=== PATIENT | female | born 1975 | race Caucasian/White ===

== ENCOUNTER 2016-11-01 23:51 | Emergency (ER) | payer OTHER ==
--- NOTE | ~2016-11-01 | EKG ---
PATIENT: DARIEN BRYSON UNIT #: [id number] Ventricular Rate: 73 BPM Atrial Rate: 73 BPM P-R Interval: 170 ms QRS Duration: 78 ms Q-T Interval: 404 ms QTC Calculation(Bezet): 445 ms P [place]: 28 degrees Calculated R [place]: 6 degrees Calculated T [place]: 21 degrees Diagnosis Line: Normal sinus rhythm Diagnosis Line: Normal ECG Diagnosis Line: No previous ECGs available Diagnosis Line: Confirmed by EDEL SANDERSON MD ([id number]) on Diagnosis Line: 11/03/2016 12:05:21 AM INTERPRETING MD: KIN NELSON
--- NOTE | ~2016-11-01 | EKG ---
PATIENT: DARIEN BRYSON UNIT #: [id number] Ventricular Rate: 91 BPM Atrial Rate: 91 BPM P-R Interval: 152 ms QRS Duration: 76 ms Q-T Interval: 360 ms QTC Calculation(Bezet): 442 ms P [place]: 64 degrees Calculated R [place]: 12 degrees Calculated T [place]: 30 degrees Diagnosis Line: Normal sinus rhythm Diagnosis Line: Normal ECG Diagnosis Line: No previous ECGs available Diagnosis Line: Confirmed by EDEL SANDERSON MD ([id number]) on Diagnosis Line: 11/03/2016 12:04:53 AM INTERPRETING MD: KIN NELSON
--- NOTE | ~2016-11-01 | CR63 ---
[facility] A Service of [facility] & [facility] RADIOLOGY TEXT RESULTS PATIENT: DARIEN BRYSON LOCATION: [facility] : [birth year] UNIT #: [id number] AGE: [address]: Chuckie Llamas MD SEX: F ORDER DR: [id number] [facility] [address] [place], [place] [address] [id number] MR#: [id number] Acc #: [id number] NAME: DARIEN BRYSON : 1975 SEX: F STUDY DATE/TIME: 11/01/2016 23:52 UNIT: [facility] ROOM: STUDY DESCRIPTION: CR Chest 2 View Attending Physician: Chuckie Llamas M.D. Ordering Physician: Chuckie Llamas M.D. Primary Care Physician: Som Kern M.D. MEDICAL IMAGING REPORT This report is preliminary unless electronic signature is present EXAM PA lateral chest 11/01/2016 HISTORY Chest pain and shortness of breath today. COMPARISON AP portable chest 02/06/2009. FINDINGS PA and lateral examination of the chest upright shows a good expansion of the parenchyma with a normal distribution of the pulmonary vascularity. There is no indication of congestion, effusion, infiltrate, tumor, or nodular density. The pleural reflections and diaphragmatic contours are normal. The cardiac silhouette and mediastinal anatomy is within normal limits. IMPRESSION Normal chest. Dictated by... Donna Hernández M.D. THIS IS AN ELECTRONICALLY VERIFIED REPORT Donna Hernández M.D. at 11/02/2016 9:57 PM SUMA/vlad TD: 11/02/2016 10:47 JOB #: [id number] MEDICAL IMAGING REPORT COPY
[~2016-11-01 23:51] MED LIST: ACETAMINOPHEN PO; AFRIN15 ML; ALBUTEROL17 GM INH; ATIVAN2 M1 PO; BACTRIM DS TABL1 TA1 PO; BACTRIM DS TABL1 TAB PO; BENTYL20 MG PO; CARVEDILOL6.25 MG PO; DARVOCET-N 1001 TA1; FLAGYL PO; FLONASE16 GM; HYDROCODONE/A1 UDTA2 PO; LEVAQUIN PO; LISINOPRIL5 MG PO; LORTAB 5/500 TA1 TA1 PO; LORTAB 7.5-5001 TAB PO; NORCO 5/325 TAB1 TAB PO; PHENERGAN25 MG PO; PREDNISONE PO; PREVACID30 MG/BLIS PO; RANITIDINE HCL300 M1 PO; RIFAMPIN300 MG PO; SYMBICORT INH; TUSSI PO; ZOFRAN ODT4 MG PO; ZYPREXA PO
[2016-11-02 00:12] LABS: POC - CKMB <1.0 ng/mL (0.0-7.9); POC - TROPONIN <0.05 ng/mL (<=0.05)
[2016-11-02 00:19] LABS: BASOPHIL# 0.1 X10e3 (0-0.3); BASOPHIL% 0.8 % (0-2.5); EOSINOPHIL# 0.4 X10e3 (0-0.7); EOSINOPHIL% 2.5 % (0.0-7.0); HEMATOCRIT 41.6 % (35.0-45.0); HEMOGLOBIN 13.8 gm/dL (12.0-16.0); LYMPHOCYTE# 3.5 X10e3 (1.0-3.5); LYMPHOCYTE% 19.7 % (17.0-45.0); MEAN CORPUSCULAR HEMOGLOBIN 30.8 PG (28-34); MEAN CORPUSCULAR HGB CONC 33.1 g/dL (30-36); MEAN PLATELET VOLUME 9.8 FL (6.5-11.5); MONOCYTE# 1.6 X10e3 (0-1.0); PLATELET COUNT 270 X10e3 (140-420); RED BLOOD COUNT 4.48 X10e (3.90-5.30); WHITE BLOOD COUNT 17.6 X10e3 (4.0-10.5)
[2016-11-02 00:20] LABS: DIFF IND YES
[2016-11-02 00:47] LABS: ALBUMIN SERUM 4.3 g/dL (3.5-5.0); ALKALINE PHOSPHATASE 67 U/L (32-92); ALT (SGPT) 12 U/L (10-40); AST (SGOT) 19 U/L (10-42); BILIRUBIN, DIRECT 0.1 mg/dL (0.0-0.2); BILIRUBIN,INDIRECT 0.6 mg/dL (0.0-0.9); BILIRUBIN,TOTAL 0.7 mg/dL (0.2-2.0); BLOOD UREA NITROGEN 14 mg/dL (9-23); CARBON DIOXIDE 25 mmol/L (22-31); CHLORIDE 106 mmol/L (100-111); CREATININE SERUM 0.7 mg/dL (0.6-1.4); GLOM FILT RATE Estimated ABOVE60 mL/min (>60); GLUCOSE FASTING 102 mg/dL (70-110); POTASSIUM 3.7 mmol/L (3.5-5.1); PROTEIN TOTAL SERUM 7.2 g/dL (6.0-8.3); SODIUM 136 mmol/L (135-145)
[2016-11-02 00:54] LABS: ANISOCYTOSIS SL; PLATELET ESTIMATE NORMAL (NORMAL)
[2016-11-02 01:55] LABS: POC - CKMB <1.0 ng/mL (0.0-7.9); POC - TROPONIN <0.05 ng/mL (<=0.05)
[2016-12-04] MEDS ORDERED: LISINOPRIL20 MG PO (09:58)
[2016-12-04] MEDS ORDERED: CARVEDILOL25 MG PO (09:58)
[2016-12-04] MEDS ORDERED: CELEXA20 MG PO (09:59)
[2016-12-04] MEDS ORDERED: AMLODIPINE BESYL5 MG PO (09:59)
== END 2016-11-02 03:38 | disposition home or self-care (01) ==
LOC: CED 23:51
PROVIDERS: Emergency Medicine
DX: R07.89 Other chest pain (principal); F41.9 Anxiety disorder, unspecified; I10 Essential (primary) hypertension; F17.210 Nicotine dependence, cigarettes, uncomplicated; Z88.1 Allergy status to other antibiotic agents; Z88.0 Allergy status to penicillin
CPT/HCPCS: 36415; 71020; 80048; 80076; 82553; 83880; 84484; 85025; 93005; 99284

== ENCOUNTER → 2016-12-04 | Outpatient (CLI) | payer OTHER ==
[~2016-12-04] MED LIST changes: +AMLODIPINE BESYL5 MG PO; +CARVEDILOL25 MG PO; +CELEXA20 MG PO; +LISINOPRIL20 MG PO
[2016-12-04 11:08] LABS: CHOLESTEROL 195 mg/dL (0-200); HDL CHOLESTEROL 75 mg/dL (35-95); LDL CHOLESTEROL 101 mg/dL ([, -130]); LDL/HDL RATIO 1 RATIO (0-4); TRIGLYCERIDES 97 mg/dL (10-160)
== END | disposition home or self-care (01) ==
LOC: CLAB 09:27
PROVIDERS: Internal Medicine Cardiovascular Disease
DX: E78.4 Other hyperlipidemia (principal); R53.83 Other fatigue
CPT/HCPCS: 36415; 80061; 84443; J1644; J2250; J3010

== ENCOUNTER → 2016-12-04 | Outpatient (CLI) | payer OTHER ==
--- NOTE | ~2016-12-04 | EKG ---
PATIENT: DARIEN BRYSON UNIT #: [id number] Ventricular Rate: 58 BPM Atrial Rate: 58 BPM P-R Interval: 154 ms QRS Duration: 68 ms Q-T Interval: 430 ms QTC Calculation(Bezet): 422 ms P [place]: 43 degrees Calculated R [place]: 26 degrees Calculated T [place]: 21 degrees Diagnosis Line: Sinus bradycardia Diagnosis Line: Otherwise normal ECG Diagnosis Line: When compared with ECG of 02-NOV-2016 01:27, Diagnosis Line: T wave amplitude has increased in Lateral leads Diagnosis Line: Confirmed by VICTOR MANUEL BHANDARI MD ([id number]) on 12/05/2016 Diagnosis Line: 6:09:29 AM INTERPRETING MD: ELISABET NELSON
[2016-12-04 10:00] LABS: HEMATOCRIT 41.1 % (35.0-45.0); HEMOGLOBIN 13.5 gm/dL (12.0-16.0); MEAN CELL VOLUME 93.3 FL (83-96); MEAN CORPUSCULAR HEMOGLOBIN 30.5 PG (28-34); MEAN CORPUSCULAR HGB CONC 32.7 g/dL (30-36); RED BLOOD COUNT 4.41 X10e (3.90-5.30); RED CELL DISTRIBUTION WIDTH 12.8 % (11.0-15.5); WHITE BLOOD COUNT 7.1 X10e3 (4.0-10.5)
[2016-12-04 10:14] LABS: PARTIAL THROMBOPLASTIN TIME 28.7 SECONDS (23.5-31.3); PROTHROMBIN TIME (PATIENT) 10.6 SECONDS (9.6-11.5)
[2016-12-04 10:36] LABS: BUN/CREATININE RATIO 21.42; CALCIUM SERUM 9.4 mg/dL (8.4-10.2); CREATININE SERUM 0.7 mg/dL (0.6-1.4); GLOM FILT RATE Estimated 106.1 mL/min (>60); POTASSIUM 4.1 mmol/L (3.5-5.1)
== END | disposition home or self-care (01) ==
LOC: CCVL 09:05
PROVIDERS: Internal Medicine Cardiovascular Disease
PROC: 4A023N7 Measurement of Cardiac Sampling and Pressure, Left Heart, Percutaneous Approach (ICD-10-PCS; principal; 2016-12-04)
PROC: B211YZZ Fluoroscopy of Multiple Coronary Arteries using Other Contrast (ICD-10-PCS; 2016-12-04)
PROC: B215YZZ Fluoroscopy of Left Heart using Other Contrast (ICD-10-PCS; 2016-12-04)
DX: R07.89 Other chest pain (principal); K21.9 Gastro-esophageal reflux disease without esophagitis; I10 Essential (primary) hypertension; R53.83 Other fatigue; E78.4 Other hyperlipidemia; F32.9 Major depressive disorder, single episode, unspecified; M25.512 Pain in left shoulder; Z79.899 Other long term (current) drug therapy; Z88.1 Allergy status to other antibiotic agents; Z88.0 Allergy status to penicillin
CPT/HCPCS: 80048; 85027; 85610; 85730; 93005; C1769; C1887; C1894; J2550